=== PATIENT | female | born 1965 | race Caucasian/White ===

== ENCOUNTER → 2018-02-04 | Outpatient (CLI) | payer OTHER ==
[~2018-02-04] VITALS: Ht 160 cm; Wt 136.1 kg
[~2018-02-04] MED LIST: ARTHROTEC 501 TABLET PO; ASPIRIN325 MG PO; BYDUREON B2 MG/0.85 SC; CALCIUM WITH V1 EAC2 PO; FORTAMET1000 M1 PO; JARDIANCE10 MG PO; LEVOXYL125 MCG PO; SYNTHROID125 MCG PO; VITAMIN C500 M6 PO; VITAMIN D31000 UNIT PO; [UNRECOGNIZED DRUG - OTHER] PO
[2018-02-04 13:26] LABS: HEMATOCRIT 41.1 % (36.0-46.0); HEMOGLOBIN 13.5 G/DL (11.9-15.5); MCV 85.4 FL (83-99)
[2018-02-04 13:32] LABS: INTER. NORMALIZED RATIO 1.1
[2018-02-04 13:35] LABS: PTT 28.3 SEC (25-37)
[2018-02-04 13:50] LABS: CHLORIDE 105 MEQ/L (99-109); CREATININE 0.8 MG/DL (0.6-1.3); GFR ESTIMATE (CALCULATED) > 59 mL/min/; GLUCOSE 144 mg/dL (70-99); POTASSIUM 4.4 MEQ/L (3.7-5.4); SODIUM 140 MEQ/L (136-147); UREA NITROGEN (BUN) 8 mg/dL (9-23)
== END | disposition home or self-care (01) ==
LOC: AMB 12:13
PROVIDERS: Anesthesiology; Specialist
DX: R13.10 Dysphagia, unspecified (principal); K29.50 Unspecified chronic gastritis without bleeding; B96.81 Helicobacter pylori [H. pylori] as the cause of diseases classified elsewhere; D12.0 Benign neoplasm of cecum; K64.8 Other hemorrhoids; Z83.71 Family history of colonic polyps; Z85.3 Personal history of malignant neoplasm of breast; Z92.21 Personal history of antineoplastic chemotherapy; Z92.3 Personal history of irradiation; Z86.718 Personal history of other venous thrombosis and embolism; I10 Essential (primary) hypertension; G47.30 Sleep apnea, unspecified; Z79.82 Long term (current) use of aspirin; Z79.84 Long term (current) use of oral hypoglycemic drugs; E66.3 Overweight; Z68.43 Body mass index [BMI] 50.0-59.9, adult; Z88.2 Allergy status to sulfonamides; Z88.8 Allergy status to other drugs, medicaments and biological substances
CPT/HCPCS: 80048; 82948; 85014; 85018; 85610; 85730; 88305; 88342 TC; 93005; J2250